=== PATIENT | male | born 2000 | race Two or more races ===

== ENCOUNTER 2022-06-01 03:02 | Emergency (ER) | payer MEDICAID ==
[~2022-06-01] VITALS: Ht 177.8 cm; Wt 86.0 kg
[2022-06-01 07:47] VITALS: BP 107/53
[2022-06-01] MEDS ORDERED: CEPH-509 PO (08:19)
== END 2022-06-01 08:23 | disposition home or self-care (01) ==
LOC: ER 03:02
DX: S50.862A Insect bite (nonvenomous) of left forearm, initial encounter (principal); J45.909 Unspecified asthma, uncomplicated; Z79.899 Other long term (current) drug therapy; W57.XXXA Bitten or stung by nonvenomous insect and other nonvenomous arthropods, initial encounter; Y93.89 Activity, other specified; Y92.89 Other specified places as the place of occurrence of the external cause; Y99.8 Other external cause status